=== PATIENT | female | born 1970 | race Caucasian/White ===

== ENCOUNTER 2016-08-19 22:06 | Emergency (ER) | payer OTHER ==
[~2016-08-19] VITALS: Ht 165.1 cm; Wt 67.1 kg
[2016-08-19 22:13] VITALS: BP 144/76
--- NOTE | 2016-08-19 22:37 | ED Integumentary General ---
General Chief Complaint: Allergic Reaction Stated Complaint: FACIAL SWELLING Nursing Triage Note: PT TO ED 10 W/ FAMILY FOR C/O SWELLING TO EYES ET BRIDGE OF NOSE ONSET X4 DAYS, WORSE TODAY. 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 RT EYE SWOLLEN SHUT AT THIS TIME. Source: patient, RN notes reviewed Exam Limitations: no limitations History of Present Illness Time seen by provider: 22:30 Initial Comments As above and below. Timing/Duration: other (x 4 days) Severity: moderate Location: face Possible Cause: other (? poison david) Modifying Factors: improves with other (none) Associated Symptoms: swelling/mass/lumps (around eyes/face) Allergies and Home Medications Allergies Coded Allergies: No Known Drug Allergies (Unverified , 08/19/16) Home Medications Famotidine 20 Mg Tablet, 20 MG PO BID, #10 Ref 0 Prescribed by: JOHN LIMA on 08/19/162258 Prednisone 20 Mg Tab, 60 MG PO DAILY, #12 Ref 0 Prescribed by: JOHN LIMA on 08/19/162258 Constitutional: see HPI Skin: see HPI, pruritus, rash All Other Systems Reviewed Negative Unless Noted: Yes (Negative excepted noted.) Past Iacfqeg-Aqaeoi-Lzicgk Hx Patient Social History Alcohol Use: Occasionally Uses Recreational Drug Use: No Smoking Status: Current Everyday Smoker Type Used: Cigarettes Recent Foreign Travel: No Contact w/Someone Who Travel: No Recent Infectious Disease Expo: No Recent Hopitalizations: No Surgeries HX Surgeries: Yes Surgeries: Gallbladder Respiratory Hx Respiratory Disorders: No Cardiovascular Hx Cardiac Disorders: No Neurological Hx Neurological Disorders: No Genitourinary Hx Genitourinary Disorders: No Gastrointestinal Hx Gastrointestinal Disorders: No Musculoskeletal Hx Musculoskeletal Disorders: No Endocrine Hx Endocrine Disorders: Yes Endocrine Disorders: Lupus HEENT HX ENT Disorders: No Cancer Hx Cancer: No Psychosocial Hx Psychiatric Problems: No Physical Exam Vital Signs Vital Sign - Last 12Hours 08/19/16 22:13 Temp 96.2 Pulse 71 Resp 20 B/P (MAP) 144/76 Pulse Ox 100 O2 Delivery Room Air Capillary Refill : Less Than 3 Seconds General Appearance: WD/WN, no apparent distress HEENT: PERRL/EOMI, other (moderate periorbital swelling/erythema c/w a contact dermatitis, R>L; face is involved to lesser extent.) Neck: normal inspection Cardiovascular: regular rate, rhythm Respiratory: no respiratory distress Neurologic/Psychiatric: alert, oriented x 3 Skin: rash Skin Problem Location: face, neck Skin Problem Character: erythema, rash, swelling, tenderness, other (appears c/ w classical contact dermatitis such as poison david) Progress/Results/Core Measures Results/Orders My Orders Orders - JOHN LIMA DO Dexamethasone Pf Injection (Decadron Pf (08/19/16 22:45) Prednisone Tablet (Deltasone Tablet) (08/19/16 22:45) Famotidine Tablet (Pepcid Tablet) (08/19/16 22:45) Prednisolone 1% Ophthalmic Melissa (Pred For (08/19/16 22:45) Medications Given in ED Current Medications Medications Dose Ordered Sig/Rodney Route Start Time Stop Time Status Last Admin Dose Admin Dexamethasone Sodium Phosphate 10 mg ONCE ONCE IM 08/19/16 22:45 08/19/16 22:46 DC 08/19/16 22:51 10 MG Famotidine 40 mg ONCE ONCE PO 08/19/16 22:45 08/19/16 22:46 DC 08/19/16 22:51 40 MG Prednisone 60 mg ONCE ONCE PO 08/19/16 22:45 08/19/16 22:46 DC 08/19/16 22:50 60 MG Vital Signs/I&O Vital Sign - Last 12Hours 08/19/16 22:13 Temp 96.2 Pulse 71 Resp 20 B/P (MAP) 144/76 Pulse Ox 100 O2 Delivery Room Air Blood Pressure Mean: 98 Departure Impression Impression: Primary Impression: Contact dermatitis Disposition: 01 HOME, SELF-CARE Condition: Stable Departure-Patient Inst. Decision time for Depature: 22:57 Referrals: VICTOR M MARIEE DO Scripts Prednisone (Prednisone) 20 Mg Tab 60 MG PO DAILY for Rash, #12 TAB 0 Refills Prov: JOHN LIMA DO 08/19/16 Famotidine (Pepcid) 20 Mg Tablet 20 MG PO BID for Rash, #10 TAB 0 Refills Prov: JOHN LIMA DO 08/19/16 JOHN LIMA DO Aug 19, 2016 22:37
[2016-08-19] MEDS ORDERED: predniSONE 10 MG TAB PO ONE (22:45)
[2016-08-19] MEDS ORDERED: FAMOTIDINE 20 MG (PEPCID) TABLET PO ONE (22:45)
[2016-08-19] MEDS ORDERED: prednisoLONE 1% OPTH (PRED FORTE) 5 ML BTL OU SCH (22:45)
[2016-08-19] MEDS ORDERED: DEXAMETHASONE PF 10 MG/ML (DECADRON) VIAL IM ONE (22:45)
[2016-08-19] MEDS ORDERED: FAMO-119 PO (22:59)
[2016-08-19] MEDS ORDERED: PRD20T PO (22:59)
== END 2016-08-19 23:08 | disposition home or self-care (01) ==
LOC: EDUNIT# 22:06 → ER 22:10
DX: L25.5 Unspecified contact dermatitis due to plants, except food (principal); F17.210 Nicotine dependence, cigarettes, uncomplicated
CPT/HCPCS: 96372; 99282